=== PATIENT | male | born 1965 | race African-American/Black ===

== ENCOUNTER 2018-02-26 23:44 | Inpatient (IN) | payer SELFPAY ==
[~2018-02-26] VITALS: Ht 182.9 cm; Wt 85.0 kg
--- NOTE | 2018-02-26 23:50 | NUR ---
PT PRESENTED TO THE ER WITH A C/O LEFT SIDED CP THAT RADIATES TO THE LUE. PT AMBULATED TO ER BED #16 WITH A STEADY GAIT. PT WAS CONNECTED TO THE MONITOR AND CONTINOUS PULSE OX. PT STATED THAT THE PAIN STARTED 4 DAYS AGO AND IS INTERMITTENT. PT DENIES ANY MEDICAL HX OR BEING ON ANY HOME MEDICATIONS.
[2018-02-27] MEDS ORDERED: ASPIRIN 325 MG TABLET PO ONE
[2018-02-27] MEDS ORDERED: ASPIRIN 325 MG TABLET ONE (00:02)
--- NOTE | 2018-02-27 00:08 | NUR ---
DR. KRAUSE IS AT THE BEDSIDE EVALUATING THE PT.
[2018-02-27 00:39] LABS: BASOPHILS # (AUTO) 0.1 /CMM (0.0-0.2); BASOPHILS % (AUTO) 1.2 % (0.0-2.0); EOSINOPHILS % (AUTO) 4.4 % (0.0-6.0); HEMATOCRIT 41 % (39-51); HEMOGLOBIN 13.7 g/dL (13.5-17.5); LYMPHOCYTES # (AUTO) 1.9 /CMM (0.8-4.8); LYMPHOCYTES % (AUTO) 35.8 % (20.0-44.0); MEAN CORPUSCULAR HGB CONC 33 g/dl (31.0-36.0); MEAN CORPUSCULAR VOLUME 86 fL (80-96); MONOCYTES # (AUTO) 0.4 /CMM (0.1-1.30); MONOCYTES % (AUTO) 8.1 % (2.0-12.0); NEUTROPHILS # (AUTO) 2.6 /CMM (1.8-8.9); NEUTROPHILS % (AUTO) 50.5 % (43.0-81.0); PLATELET COUNT (AUTO) 312 /CMM (150-450); RDW COEFFICIENT OF VARIATION 13.4 (11.5-15.0); RED BLOOD CELL COUNT(AUTO) 4.82 MIL/uL (4.5-6.0); WHITE BLOOD COUNT (AUTO) 5.2 K/uL (4.3-11.0)
[2018-02-27 00:50] LABS: CARBON DIOXIDE 27 mmol/L (21-32); CHLORIDE 106 mmol/L (98-107); CREATININE 1.1 mg/dL (0.6-1.3); GLUCOSE 147 mg/dL (74-106); POTASSIUM 3.6 mmol/L (3.5-5.1); SODIUM SERUM 142 mmol/L (136-145); UREA NITROGEN, BLOOD 20 mg/dL (7-18)
[2018-02-27 00:53] LABS: INR 1.02 (0.87-1.13)
[2018-02-27 00:56] LABS: TROPONIN I < 0.017 ng/mL (0.00-0.056)
[2018-02-27 01:02] LABS: B-TYPE NATRIURETIC PEPTIDE 38 PG/ML (0-125)
[2018-02-27] MEDS ORDERED: ONDANSETRON HCL/PF 4 MG/2 ML VIAL IVP PRN (02:00)
[2018-02-27] MEDS ORDERED: MAGNESIUM HYDROXIDE 30 ML UDC PO PRN (02:00)
[2018-02-27] MEDS ORDERED: HYDROCODONE/APAP 5/325MG 1 EACH TABLET PO PRN (02:00)
[2018-02-27] MEDS ORDERED: TEMAZEPAM 15 MG CAPSULE PO PRN (02:00)
[2018-02-27] MEDS ORDERED: MAG HYDROX/AL HYDROX/SIMETH 30 ML UDC PO PRN (02:00)
[2018-02-27] MEDS ORDERED: ACETAMINOPHEN 325 MG TABLET PO PRN (02:00)
--- NOTE | 2018-02-27 02:09 | NUR ---
PT APPEARS TO BE RESTING COMFORTABLY WITH NO S/S OF PAIN OR DISTRESS.
--- NOTE | 2018-02-27 02:31 | NUR ---
CALLING REPORT TO TELE NURSE.
--- NOTE | 2018-02-27 02:34 | NUR ---
REPORT GIVEN TO LEXIS MARTINEZ
[2018-02-27] MEDS ORDERED: NITROGLYCERIN 0.4 MG/TAB BOTTLE SL ONE (03:00)
[2018-02-27 03:15] VITALS: BP 128/85
--- NOTE | 2018-02-27 03:15 | NUR ---
PRIMARY CLINICIAN OPENING NOTES: RECEIVED PT FROM ED. PT ON ROOM AIR AND TOLERATING WELL. PT IS AWAKE AND IS A/OX4. PT HAS IV ON L HAND #20G AND IS PATENT AND INTACT. CURRENTLY S/L. PT TO BE PLACED ON TELE BOX. CALL LIGHT WITHIN PT'S REACH. BED KEPT IN LOW, LOCKED POSITION, AND SIDE RAILS X 2UP. WILL CONTINUE TO MONITOR PT.
--- NOTE | 2018-02-27 03:30 | NUR ---
MS PIRES NOTES: PT WAS OFFERED NITRO FOR HIS CHEST PAIN BUT PT REFUSED. HE SAID THAT HE HAS HAD A REACTION FROM IT BEFORE. OFFERED MORPHINE INSTEAD. Addendum: 02/27/18 at 0357 by GENE GARCIA RN [facility] DIRECTOR NOTE Addendum: 02/27/18 at 0421 by GENE GARCIA RN NITRO PLACED IN PT'S CASETTE IN MED ROOM.
[2018-02-27] MEDS: MORPHINE SULFATE INJ 4 MG/ML DISP.SYRIN IV PRN ×2 (03:47→08:19)
--- NOTE | 2018-02-27 03:47 | NUR ---
FILIBERTO PIRES NOTES: PT WAS ADMINISTERED MORPHINE IV FOR HIS CHEST PAIN. PT WAS ALSO ADMINISTERED ZOFRAN PT DID NOT WANT TO HAVE N/V. Addendum: 02/27/18 at 0414 by GENE GARCIA RN PT PLACED ON OXYGEN 2LPM VIA NC.
[2018-02-27 04:00] VITALS: BP 129/78
--- NOTE | 2018-02-27 06:26 | NUR ---
MIRROR MACHINE FEEDER CLOSING NOTES: ALL NEEDS WERE ATTENDED AND ANTICIPATED FOR. PT ASLEEP AT THIS TIME RESTING COMFORTABLY. PT ON ROOM AIR AND HAS PRN O2 AT BEDSIDE. IV REMAINS INTACT. CURRENTLY S/L. PT ON TELE BOX AND READING SHOWS SR 60-70S. CALL LIGHT WITHIN PT'S REACH. BED KEPT IN LOW, LOCKED POSITION, AND SIDE RAILS X 2UP. WILL ENDORSE TO AM NURSE FOR AMOL.
[2018-02-27 07:05] LABS: MAGNESIUM 1.9 mg/dL (1.8-2.4); PHOSPHORUS 3.9 mg/dL (2.5-4.9)
[2018-02-27 07:06] LABS: TROPONIN I < 0.017 ng/mL (0.00-0.056)
--- NOTE | 2018-02-27 07:16 | NUR ---
EXECUTIVE VICE PRESIDENT AND CHIEF FINANCIAL OFFICER NOTES PATIENT RECEIVED RESTING INSIDE ROOM, AWAKE, ALERT AND ORIENTED X4, VERBALLY RESPONSIVE AND RESPONDS TO VERBAL AND TACTILE STIMULI. PATIENT BREATHING EVEN AND UNLABORED, NO SOB OR ACUTE DISTRESS AT THIS TIME. DENIES ANY PAIN OR DISCOMFORT. TELE MONITOR IN PLACE. IV INTACT AND PATENT, NO SWELLING OR BLEEDING NOTED AT THIS TIME. WILL CONTINUE TO MONITOR. BED LOCKED AND IN LOW POSITION. BILATERAL UPPER SIDE RAILS UP AND LOCKED. CALL LIGHT WITHIN EASY REACH
[2018-02-27] MEDS ORDERED: PANTOPRAZOLE 40 MG TABLET.DR PO SCH (07:30)
[2018-02-27 07:49] LABS: CHOLESTEROL 127 mg/dL (<200); HDL CHOLESTEROL 36 mg/dL (40-60); LDL 89 mg/dL (0-99); TRIGLYCERIDES 52 mg/dL (30-150)
[2018-02-27 08:00] VITALS: BP 106/63
[2018-02-27] MEDS ORDERED: ASPIRIN 81 MG TAB.CHEW PO SCH (09:00)
[2018-02-27] MEDS ORDERED: IOHEXOL-350 100 ML VIAL IV ONE (15:19)
[2018-02-27] MEDS ORDERED: NITROGLYCERIN 0.4 MG/TAB BOTTLE ONE (15:39)
[2018-02-27 16:00] VITALS: BP 120/66
--- NOTE | 2018-02-27 19:20 | NUR ---
MS RN NOTES RESTING COMFORTABLY ON BED.CLAIMED SLIGHT HEADACHE AND DIZZINESS,WANTS TO STAY FOR ANOTHER 20 MINUTES BEFORE GOING HOME.
--- NOTE | 2018-02-27 19:28 | NUR ---
MS RN NOTES PATIENT RESTING INSIDE ROOM, AWAKE, ALERT AND ORIENTED. VERBALLY RESPONSIVE AND RESPONDS TO VERBAL AND TACTILE STIMULI. BREATHING EVEN AND UNLABORED. NO SOB OR ACUTE DISTRESS NOTED. NO CHANGES IN LOC NOTED. IV SITE INTACT AND PATENT. ENDORSED TO INCOMING SHIFT FOR AMOL. BED LOCKED AND IN LOW POSITION. BILATERAL UPPER SIDE RAILS UP AND LOCKED. CALL LIGHT WITHIN EASY REACH
--- NOTE | 2018-02-27 20:00 | NUR ---
MS RN NOTES PATIENT CLAIMED HE'S READY TO GO.SALINE LOCK X2 REMOVED FROM LEFT ARM.ID BAND REMOVED.PAPERS WORKS GIVEN.WENT DOWN AMBULATORY ACCOMPANIED BY LESTER.REFUSED WHEELCHAIR.
== END 2018-02-27 20:04 | disposition home or self-care (01) | DRG 313 ==
LOC: ER 23:47 → EDBD 02-27 02:19 → TELE 02-27 02:19 → MED 02-27 16:33
PROVIDERS: ADMIT Nurse Practitioner Acute Care; ATTEND Nurse Practitioner Acute Care
DX: R07.89 Other chest pain (principal); Z98.890 Other specified postprocedural states
CPT/HCPCS: 36415; 71045-TC; 75574; 80048-TC; 80061-TC; 83735-TC; 83880; 84100-TC; 84484-TC; 85025-TC; 85730-TC; 87081-TC; 93307-TC; A4606; A6403; J2270; J2405; Q9967; Z7610

== ENCOUNTER 2020-02-03 01:42 | Emergency (ER) | payer SELFPAY ==
[~2020-02-03] VITALS: Ht 182.9 cm; Wt 79.4 kg
[2020-02-03 01:53] VITALS: BP 158/90
[2020-02-03] MEDS ORDERED: KETOROLAC TROMETHAMINE INJ 30 MG/ML VIAL IM ONE (02:00)
[2020-02-03] MEDS ORDERED: KETOROLAC TROMETHAMINE INJ 30 MG/ML VIAL ONE (02:03)
--- NOTE | 2020-02-03 02:42 | NUR ---
Patient discharged to home in stable condition. Written and verbal after care instructions given. Patient verbalizes understanding of instruction. ambulatory with a steady gait
== END 2020-02-03 02:50 | disposition home or self-care (01) ==
LOC: ER 01:42
DX: M16.0 Bilateral primary osteoarthritis of hip (principal); Z98.890 Other specified postprocedural states
CPT/HCPCS: 73503; 96372; 99283; J1885; 73502

== ENCOUNTER 2025-03-10 21:31 | Emergency (ER) | payer OTHER ==
[~2025-03-10] VITALS: Ht 180.3 cm; Wt 70.8 kg
[2025-03-10 23:25] VITALS: BP 142/75; TEMP 97.4; O2SAT 98
== END 2025-03-10 23:26 | disposition home or self-care (01) ==
LOC: ER 21:42
DX: R07.89 Other chest pain (principal); Z20.2 Contact with and (suspected) exposure to infections with a predominantly sexual mode of transmission; Z60.2 Problems related to living alone
CPT/HCPCS: 71100-TC; 87491; 87591